=== PATIENT | male | born 2005 | race Caucasian/White ===

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

== ENCOUNTER → 2025-03-28 | Outpatient (CLI) | payer OTHER ==
[2025-03-28 10:04] LABS: INR 1.1 (<1.2); Partial Thromboplastin Time 28.7 sec (22.0-30.0); Prothrombin Time 12.3 sec (10.0-12.5)
[2025-03-28 10:51] LABS: Creatinine,Urine Random 355.6 mg/dL; Protein/Creatinine Ratio,Urine 0.017
[2025-03-28 14:19] LABS: Basophils # (A) 0.07 X 10*3/uL (0.00-0.10); Basophils % (A) 1.3 %; Eosinophils % (A) 5.5 %; HCT 46.4 % (39.6-50.0); HGB 15.3 g/dL (13.0-17.0); Lymphocytes # (A) 1.37 X 10*3/uL (0.90-5.00); Lymphocytes % (A) 25.3 %; MCH 28.7 pg (27.0-32.0); MCV 87.1 FL (80.0-97.0); Mean Platelet Volume 12.3 FL (9.5-12.2); Monocytes # (A) 0.52 X 10*3/uL (0.20-1.00); Monocytes % (A) 9.6 %; NRBC Per 100 WBC 0 X 10*3/uL (0.00-0.01); Neutrophils # (A) 3.14 X 10*3/uL (1.80-7.70); Neutrophils % (A) 57.9 %; Platelet Count 176 X 10*3/uL (140-440); RBC 5.33 X 10*6/uL (4.40-5.60); RDW 13.5 % (11.5-14.5); WBC 5.42 X 10*3/uL (4.50-10.00)
[2025-03-28 14:28] LABS: Erythrocyte Sedimentation Rate 5 mm/Hr (0-15)
[2025-03-28 14:52] LABS: % Iron Saturation 27.75 (15.00-50.00); C Reactive Protein <0.30 mg/dL (0.00-0.80); Chol/HDL Ratio 2.24 Ratio; Creatine Kinase 94 U/L (35-257); Iron 96 UG/DL (65-175); LDL Cholesterol,Calculated 45.1 mg/dL (0.0-131.0); Magnesium 2.2 mg/dL (1.5-2.4); Phosphorus 4.1 mg/dL (2.4-5.1); Total Iron Binding Capacity 346 UG/DL (228-460); Uric Acid 3.7 mg/dL (3.7-8.7); VLDL Calculation 10.82 mg/dL (5.00-40.00)
[2025-03-28 14:53] LABS: ALT 12 U/L (10-49); AST 16 U/L (14-35); Albumin 4.7 g/dL (3.8-4.9); Albumin/Globulin Ratio 1.57 Ratio (1.60-3.17); Alkaline Phosphatase 86 U/L (41-126); BUN/Creat Ratio 17.22 Ratio (12.00-20.00); Blood Urea Nitrogen 15.5 mg/dL (9.0-27.0); Calcium 9.6 mg/dL (8.7-10.3); Chloride 103 mmol/L (96-109); Ferritin 51.7 ng/mL (22.0-322.0); Glucose 90 mg/dL (70-110); Sodium 140 mmol/L (135-145); Total Bilirubin 0.9 mg/dL (0.3-1.2); Total Protein 7.7 g/dL (6.2-8.2)
[2025-03-28 14:59] LABS: Protein, Total 7.5 g/dL (6.2-8.2)
[2025-03-28 15:03] LABS: Hepatitis A Antibody IgM Nonreactive (Nonreactive); Hepatitis B Core IgM Nonreactive (Nonreactive); Hepatitis B Surface Antigen Nonreactive (Nonreactive); Hepatitis C IgG Antibody Nonreactive (Nonreactive)
[2025-03-28 15:06] LABS: Appearance,Urine Clear (Clear); Bilirubin,Urine Negative (Negative); Blood,Urine Negative (Negative); Color,Urine Dark Yellow (Yellow); Ketones,Urine Trace (Negative); Nitrite,Urine Negative (Negative); PH, Urine 5.5; Specific Gravity,Urine 1.032 (1.001-1.030)
[2025-03-30 13:43] LABS: Anti-DNA, DS unit <1.0 IU/mL; Anti-Smith Ab Interp Negative (Negative); DNA Double-Stranded Negative (Negative)
[2025-03-30 15:21] LABS: C-ANCA <1:20 Titer (<1:20)
== END | disposition home or self-care (01) ==
LOC: LABWHC1 08:20
PROVIDERS: ATTEND Internal Medicine
DX: D64.9 Anemia, unspecified (principal); E78.5 Hyperlipidemia, unspecified; E87.8 Other disorders of electrolyte and fluid balance, not elsewhere classified; R31.9 Hematuria, unspecified; N39.0 Urinary tract infection, site not specified; M35.9 Systemic involvement of connective tissue, unspecified
CPT/HCPCS: 36415; 80053; 80061; 80074; 81003; 82043; 82306; 82550; 82570; 82728; 83540; 83550; 83735; 83970; 84100; 84156; 84165; 84443; 84550; 85025; 85610; 85652; 85730; 86038; 86140; 86160; 86162; 86225; 86235; 86255; 86334; 86335; 87086